=== PATIENT | male | born 1985 | race American Indian/Alaskan Native ===

== ENCOUNTER 2021-01-17 19:05 | Emergency (ER) | payer SELFPAY ==
[2021-01-17 20:05] VITALS: BP 159/99
--- NOTE | 2021-01-17 20:56 | Emergency Department Report ---
Chief Complaint: Skin Rash Stated Complaint: PT STATES HAS CRABS ALL OVER Time Seen by Provider: 01/17/21 20:16 - HPI History of Present Illness: Patient is a 35-year-old male presents emergency room with complaints of an intermittent rash for 5 months. He states that he saw a convict guard and was prescribed an ointment which helped. He denies any fever, nausea, vomiting, diarrhea, facial swelling, difficulty swallowing, difficulty breathing, sensation of throat closing. No past medical history. No allergies to medications. He states he is not sure if he has scabies or crabs. Vitals are stable On exam: Non toxic appearing, no acute distress atraumatic, normocephalic normal appearance of the eyes, PERRL, EOMI, no periorbital edema or ecchymosis, normal eyelashes moist mucus membranes No respiratory distress, no accessory muscle use A&O x4, no focal neuro deficit skin is warm, dry, intact, no rashes, no lesions, no urticaria, nothing present in the webs of the fingers There is no rash present No signs of scabies There are no excoriations, no signs of infection Advised patient to follow-up with primary care doctor Discussed strict return precautions Medical screen examination performed there is no threat to life or limb at this time - Exam Vital Signs: Vital Signs 01/17/21 19:59 Temperature 98.8 F Pulse Rate 71 Respiratory 18 Rate Blood Pressure 159/99 O2 Sat by Pulse 100 Oximetry MSE screening note: Focused history and physical exam performed. Due to findings the following was ordered: ED Disposition for MSE Clinical Impression: Encounter for medical screening examination Disposition: Z- MED SCREENING EXAM-LEFT Is pt being admited?: No Does the pt Need Aspirin: No Condition: Stable Additional Instructions: please follow up with a primary care doctor. return to the emergency room for any new or worsening symptoms. Referrals: PRIMARY MD JAYME [Primary Care Provider] - 2-3 Days HERON LIVE MD [Staff Physician] - 2-3 Days [facility] [Provider Group] - 2-3 Days Time of Disposition: 20:54 Print Language: KITTITIAN
== END 2021-01-17 21:00 | disposition left against medical advice (07) ==
LOC: ED 19:05
DX: Z00.8 Encounter for other general examination (principal); Z53.21 Procedure and treatment not carried out due to patient leaving prior to being seen by health care provider

== ENCOUNTER 2021-02-05 16:12 | Emergency (ER) | payer MEDICAID ==
--- NOTE | 2021-02-05 16:53 | Event Note ---
ED Screening Note Date of service: 02/05/21 Time: 17:06 ED Screening Note: 35-year-old -[place] male presents to the emergency room complaining of seeing snakes under his skin, discoloration of his hands. Having visual hallucinations. This initial assessment/diagnostic orders/clinical plan/treatment(s) is/are subject to change based on patients health status, clinical progression and re- assessment by fellow clinical providers in the ED. Further treatment and workup at subsequent clinical providers discretion. Patient/guardian urged not to elope from the ED as their condition may be serious if not clinically assessed and managed. Initial orders include:
[2021-02-05 17:07] VITALS: BP 173/101
== END 2021-02-05 18:52 | disposition left against medical advice (07) ==
LOC: ED 16:12
DX: R44.1 Visual hallucinations (principal); Z53.21 Procedure and treatment not carried out due to patient leaving prior to being seen by health care provider